=== PATIENT | female | born 1970 | race African-American/Black ===

== ENCOUNTER 2016-08-15 07:52 | Emergency (ER) | payer OTHER ==
[~2016-08-15] VITALS: Ht 162.6 cm; Wt 60.0 kg
[~2016-08-15 07:52] MED LIST: ASEN10TA SL; BACT800T5 PO; TRAM50TA PO; VALT1TAB26 PO; ZOLO50TA PO
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
[2016-08-15 08:31] VITALS: BP 137/77; PULSE 93; RESP 16; TEMP 98.4; O2SAT 97
[2016-08-15 08:43] LABS: AUTOMATED NEUTROPHIL # 5.4 TH/MM3 (1.8-7.7); BASOPHIL # 0.1 TH/MM3 (0-0.2); EOSINOPHIL # 0.2 TH/MM3 (0-0.4); EOSINOPHIL % 2.1 % (0.0-4.0); HEMATOCRIT 33.1 % (35.0-46.0); HEMO FLAGS DIFF FINAL; LYMPH % 22.3 % (9.0-44.0); LYMPHOCYTE # 1.8 TH/MM3 (1.0-4.8); MEAN CORPUSCULAR HEMOGLOBIN 27.3 PG (27.0-34.0); MEAN CORPUSCULAR HGB CONC 33.3 % (32.0-36.0); MONO % 8.9 % (0.0-8.0); NEUT % 65.7 % (16.0-70.0); PLATELET COUNT 270 TH/MM3 (150-450); RED BLOOD COUNT 4.03 MIL/MM3 (4.00-5.30); RED CELL DISTRIBUTION WIDTH 16.4 % (11.6-17.2); WHITE BLOOD COUNT 8.2 TH/MM3 (4.0-11.0)
[2016-08-15 08:54] LABS: ALT (GPT) 15 U/L (10-53); ANION GAP 10 MEQ/L (5-15); AST (GOT) 14 U/L (15-37); BICARBONATE 22.4 MEQ/L (21.0-32.0); BLOOD UREA NITROGEN 6 MG/DL (7-18); CHLORIDE 106 MEQ/L (98-107); GLOMERULAR FILTRATION RATE 101 ML/MIN (>89); POTASSIUM 3.6 MEQ/L (3.5-5.1); SODIUM (NA) 138 MEQ/L (136-145)
[2016-08-15 08:56] LABS: ALKALINE PHOSPHATASE 79 U/L (45-117); TOTAL BILIRUBIN ADULT 0.3 MG/DL (0.2-1.0)
[2016-08-15 09:18] LABS: AMPHETAMINE, URINE NEG (NEG); BARBITURATES, URINE NEG (NEG); COCAINE, URINE NEG (NEG)
[2016-08-15 11:44] VITALS: BP 124/67; PULSE 75; RESP 18; TEMP 98.9; O2SAT 98
[2016-08-15] MEDS ORDERED: ARIP1TAB13 PO (11:54)
[2016-08-15] MEDS ORDERED: SERT-129 PO (11:54)
[2016-08-15] MEDS ORDERED: ARIPiprazole 15 MG TAB PO SCH (13:00)
[2016-08-15] MEDS ORDERED: SERTRALINE HCL 100 MG TAB PO SCH (13:00)
[2016-08-15] MEDS ORDERED: LORazepam 1 MG TAB PO ONE (15:45)
[2016-08-15 18:37] VITALS: BP 139/84; PULSE 86; RESP 18; O2SAT 98
== END 2016-08-15 21:34 ==
LOC: NEPE 07:52 → NEPJ 21:34
DX: F41.9 Anxiety disorder, unspecified (principal); F32.9 Major depressive disorder, single episode, unspecified; R45.851 Suicidal ideations; F43.10 Post-traumatic stress disorder, unspecified; Z79.899 Other long term (current) drug therapy
CPT/HCPCS: 80053; 80307; 84703; 85025; 99284